=== PATIENT | female | born 1995 | race Caucasian/White ===

== ENCOUNTER → 2017-02-27 | Outpatient (CLI) | payer OTHER ==
--- NOTE | 2017-02-27 11:29 | KCIC ---
CT MAXILLOFACIAL WO CONTRAST dated 02/27/2017 11:00 AM Indication: Chronic sinusitis, cough, congestion, headaches Comparison: None Technique: Noncontrast CT imaging was performed of the[maxillofacial region], multiplanar reconstruction images submitted. One or more of the following individualized dose reduction techniques were utilized for this examination: 1. Automated exposure control 2. Adjustment of the mA and/or kV according to patient size 3. Use of iterative reconstruction technique. Findings: There are no air-fluid levels in the paranasal sinuses. There is mild mucosal thickening of the maxillary sinuses bilaterally inferiorly, up to 4 mm in thickness on the left and 3 mm in thickness on the right. Ostiomeatal units are patent bilaterally. There is [id number]-mu-xjeekmrb ethmoid air cell mucosal thickening greater anteriorly and of posterior left ethmoid air cells. The is mild sphenoid sinus mucosal thickening greater on the left, up to 4 to 5 mm in thickness. Frontal sinus is mostly aerated other than near the frontal ethmoidal recesses at which there is mucosal thickening greater on the left. There is moderate to severe opacification of right mastoid air cells, left mastoid air cells aerated. IMPRESSION: 1. There is paranasal sinus mucosal thickening as stated, no significant air-fluid levels. There is moderate to severe opacification of right mastoid air cells. Electronically signed by: Lane Hood MD (02/27/2017 11:26 AM) [id number]
== END | disposition home or self-care (01) ==
LOC: KCIC CT 10:46
PROVIDERS: ATTEND Otolaryngology
DX: J32.9 Chronic sinusitis, unspecified (principal); R05 Cough; R51 Headache
CPT/HCPCS: 70486